=== PATIENT | male | born 1985 | race Caucasian/White ===

== ENCOUNTER 2024-11-21 21:41 | Emergency (ER) | payer MEDICAID ==
[~2024-11-21] VITALS: Ht 172.7 cm; Wt 70.0 kg
[2024-11-21 21:50] VITALS: BP 150/90; PULSE 104; RESP 16; TEMP 36.7; O2SAT 98
[2024-11-22] MEDS ORDERED: LIDOCAINE HCL/PF 1% 10 MG/ML 5ML VIAL INFIL ONE (02:00)
[2024-11-22] MEDS ORDERED: BACITRACIN ZINC OINT UDPKT TOP ONE (02:00)
== END 2024-11-22 03:00 | disposition left against medical advice (07) ==
LOC: ER 21:41
DX: S01.112A Laceration without foreign body of left eyelid and periocular area, initial encounter (principal); S51.812A Laceration without foreign body of left forearm, initial encounter; M25.511 Pain in right shoulder; Y08.89XA Assault by other specified means, initial encounter; Y93.89 Activity, other specified; Y92.89 Other specified places as the place of occurrence of the external cause; Y99.8 Other external cause status
CPT/HCPCS: 73030; 99283

== ENCOUNTER 2024-11-22 05:36 | Emergency (ER) | payer MEDICAID ==
[2024-11-22 06:37] VITALS: PULSE 85; RESP 18; O2SAT 100
[2024-11-22 08:24] LABS: BASOPHILS % 0.6 % (0.0-2.0); EOSINOPHILS % 1.5 % (0.0-5.0); HEMATOCRIT. 47.7 % (42.0-52.0); HEMOGLOBIN. 15.2 g/dL (14.0-18.0); LYMPHOCYTES % 15.2 % (20.0-50.0); MEAN CORPUSCULAR HEMOGLOBIN 28.5 pg (28.0-32.0); MEAN CORPUSCULAR HGB CONC 31.9 g/dL (31.0-37.0); MEAN CORPUSCULAR VOLUME 89.3 fL (80.0-94.0); MEAN PLATELET VOLUME 8.9 fl (7.4-10.4); MONOCYTES % 6.9 % (2.0-8.0); NEUTROPHILS % 75.8 % (40.0-76.0); PLATELET 269 x1000/uL (130-400); RED BLOOD CELL COUNT 5.35 mill/uL (4.7-6.1); RED CELL DISTRIBUTION WIDTH 13.4 % (11.6-14.6); WHITE BLOOD COUNT 9.5 x1000/uL (4.5-11.0)
[2024-11-22 08:36] LABS: CHLORIDE 106 mEq/L (98-107); SODIUM 142 mEq/L (136-145)
[2024-11-22 08:37] LABS: CALCIUM 9.7 mg/dL (8.7-10.4); CARBON DIOXIDE 29 mEq/L (21-32)
[2024-11-22 08:42] LABS: GLUCOSE 103 mg/dL (70-105); UREA NITROGEN BLOOD 11 mg/dL (9-23)
[2024-11-22 08:43] LABS: TROPONIN I HIGH SENSITIVITY 8 ng/L (3.0-53)
[2024-11-22] MEDS: ACETAMINOPHEN 325MG TABLET PO ONE (09:37)
[2024-11-22] MEDS: IBUPROFEN 600MG TABLET PO ONE (09:37)
== END 2024-11-22 10:41 | disposition left against medical advice (07) ==
LOC: ER 05:36
DX: R07.89 Other chest pain (principal); Z53.21 Procedure and treatment not carried out due to patient leaving prior to being seen by health care provider
CPT/HCPCS: 36415; 80048; 84484; 85025; 93005